=== PATIENT | female | born 1975 | race Hispanic/Latino ===

== ENCOUNTER 2017-09-15 21:29 | Outpatient (CLI) | payer OTHER ==
[2017-09-15 21:52] VITALS: BP 137/86
[2017-09-15 22:44] LABS: Bacteria,Urine 2+ /HPF (Negative); Bilirubin,Urine NEG (Negative); Blood,Urine NEG (Negative); Calcium Oxalate Crystals,Urine FEW; Color,Urine Yellow (Yellow); Mucus,Urine 1+ /HPF; Protein,Urine <15 mg/dL mg/dL (Negative); Urobilinogen,Urine < 2.0 mg/dL (<2.0)
[2017-09-15 22:48] LABS: Amphetamine Screen,Urine PRESUMPTIVE NEGATIVE; Benzodiazepines Screen,Urine PRESUMPTIVE NEGATIVE; Cannabinoid Screen,Urine PRESUMPTIVE NEGATIVE; Cocaine Screen,Urine PRESUMPTIVE NEGATIVE; Methadone Screen,Urine PRESUMPTIVE NEGATIVE; Opiate Screen,Urine PRESUMPTIVE NEGATIVE
== END 2017-09-15 23:06 | disposition home or self-care (01) ==
LOC: TRG 21:29
PROVIDERS: ATTEND Obstetrics & Gynecology
DX: O36.8130 Decreased fetal movements, third trimester, not applicable or unspecified (principal); O62.9 Abnormality of forces of labor, unspecified; O09.523 Supervision of elderly multigravida, third trimester; Z3A.36 36 weeks gestation of pregnancy; Z79.899 Other long term (current) drug therapy
CPT/HCPCS: 59025; 80307; 81001; 87116

== ENCOUNTER 2017-09-24 17:15 | Outpatient (CLI) | payer OTHER ==
[2017-09-24 18:40] LABS: Bacteria,Urine 2+ /HPF (Negative); Bilirubin,Urine NEG (Negative); Blood,Urine NEG (Negative); Color,Urine Yellow (Yellow); Mucus,Urine 2+ /HPF; Urobilinogen,Urine < 2.0 mg/dL (<2.0)
[2017-09-24 18:45] LABS: Amphetamine Screen,Urine PRESUMPTIVE NEGATIVE; Benzodiazepines Screen,Urine PRESUMPTIVE NEGATIVE; Cannabinoid Screen,Urine PRESUMPTIVE NEGATIVE; Cocaine Screen,Urine PRESUMPTIVE NEGATIVE; Methadone Screen,Urine PRESUMPTIVE NEGATIVE; Opiate Screen,Urine PRESUMPTIVE NEGATIVE
[2017-09-24 20:28] LABS: Basophils % (Auto) 0.5 % (0.0-1.8); Eosinophils # (Auto) 0.2 K/mm3 (0.0-0.4); Eosinophils % (Auto) 2.3 % (0.0-4.3); Hematocrit 29.3 % (30.3-42.9); Hemoglobin 9.3 gm/dl (10.1-14.3); Lymphocytes # (Auto) 1.7 K/mm3 (1.2-5.4); Lymphocytes % (Auto) 23.6 % (13.4-35.0); Mean Corpuscular HGB Conc 32 % (30-34); Mean Corpuscular Volume 74 fl (79-97); Monocytes # (Auto) 0.8 K/mm3 (0.0-0.8); Platelet Count 220 K/mm3 (140-440); Red Blood Count 3.96 M/mm3 (3.65-5.03); Red Cell Distribution Width 16.6 % (13.2-15.2)
[2017-09-24 20:29] LABS: Mean Corpuscular Hemoglobin 24 pg (28-32)
[2017-09-24 20:57] LABS: Hepatitis C Virus Antibody Non-Reactive (NonReactive); Rubella IgG Antibody Immune (Immune)
--- NOTE | 2017-09-25 00:48 | Ultrasound Report ---
FINAL REPORT EXAM: US OB BPP WO NON-STRESS HISTORY: No care, biophysical profile. TECHNIQUE: Transabdominal sonographic evaluation was performed of the female pelvis for biophysical profile. PRIORS: None. FINDINGS: Measurements: breathing movements: Greater than or equal to 1 episode of greater than or equal to 30 seconds of breathing and 30 minutes or less (score 2) movements: Greater than or equal to 3 discrete body/limb movements in 30 minutes or less (score 2). posturing tone: Greater than or equal to 1 episode of active extension with return deflection of limbs or trunk; opening and closing of hand consider normal tone (score 2) Qualitative amniotic fluid volume: Greater than or equal to 1 pocket of fluid measuring 2 centimeters in vertical axis. (Score 2) Total biophysical profile score 8 out of 8. heart rate 157 beats per minute. Last menstrual. 12/30/2016. Estimated age 38 week 2 day. IMPRESSION: Normal biophysical profile (score 8/8). heart rate measures 157 beats/minute.
--- NOTE | 2017-09-25 00:59 | Ultrasound Report ---
FINAL REPORT EXAM: US OB > = 14 WEEKS FETUS HISTORY: NO CARE; WELL BEING TECHNIQUE: Transabdominal sonographic evaluation was performed of the fetus with and without color Doppler imaging. PRIORS: None. FINDINGS: Single intrauterine is noted in transverse left position. The placenta is anterior/right. The placenta is low lying and there is marginal placenta previa. A grade 2 placenta is noted. The cervical length is estimated at 4 centimeters and is closed. Amniotic fluid index 13.2 cm. Measurements: Biparietal diameter 8.0 cm equals 32 weeks 0 days. Head circumference 30.1 cm equals 33 weeks 3 days Abdominal circumference 28.4 cm equals 32 week 3 day Femoral length 6.2 cm equals 31 week 6 day. Head circumference/abdominal circumference ratio: 1.06 Cephalic index: 76.2 Estimated weight 1950 grams Estimated age by ultrasound criteria 32 week 3 days. The evaluated the cisterna magna, cerebellum, stomach, kidneys, bladder, diaphragm, heart, three-vessel cord, abdominal cord insertion and the longitudinal transverse views of the spine are unremarkable however follow-up imaging should be obtained The choroid plexus/lateral ventricles and four-chamber heart views were incomplete secondary to lie. IMPRESSION: 1. Marginal placenta. 2. Incomplete evaluation of the choroid plexus/lateral ventricles and four-chamber view of the heart secondary to lie. Follow-up imaging requested. 3. Single viable intrauterine in a transverse left position. There is no abnormality identified. Estimated age by ultrasound criteria is 32 weeks 3 days.
== END 2017-09-24 22:05 | disposition home or self-care (01) ==
LOC: TRG 17:15 → LD 17:17 → TRG 22:05
PROVIDERS: ATTEND Obstetrics & Gynecology
DX: O32.2XX0 Maternal care for transverse and oblique lie, not applicable or unspecified (principal); O47.1 False labor at or after 37 completed weeks of gestation; Z3A.38 38 weeks gestation of pregnancy
CPT/HCPCS: 36415; 59025; 76805; 76819; 80307; 81001; 85025; 85660; 86592; 86706; 86762; 86803; 86900; 86901; 87806

== ENCOUNTER 2017-11-05 19:48 | Outpatient (CLI) | payer SELFPAY ==
[2017-11-05 20:38] VITALS: BP 163/91
--- NOTE | 2017-11-09 14:22 | Ultrasound Report ---
FINAL REPORT EXAM: US OB FOLLOW UP HISTORY: no care TECHNIQUE: Transabdominal sonography of the pelvis. PRIORS: 24 September 2017. FINDINGS: There is a single, live intrauterine in transverse presentation, with head to maternal left. heart motion is detected and heart rate is 139 beats per minute. Placenta is located anterior, with marginal previa again evident. Umbilical cord also appears interposed between fetus and internal cervical os. Cervical length 3.4 cm. Biometric data obtained and corresponds to an estimated gestational age of 37 weeks 5 days and an ultrasound estimated date of delivery of 16 November 2017 (based on data from comparison examination). survey not performed. Amniotic fluid index is 13.7 cm. EFW: 3205g +/- 474g. BPD: 8.98 cm HC: 34.01 cm AC: 33.21 cm FL: 7.39 cm Remainder of the uterus and adnexa grossly unremarkable. IMPRESSION: 1. Single, live intrauterine . 2. Marginal placenta previa and umbilical cord overlying internal cervical os.
== END 2017-11-05 22:30 | disposition home or self-care (01) ==
LOC: TRG 19:48
PROVIDERS: ATTEND Obstetrics & Gynecology
DX: O47.1 False labor at or after 37 completed weeks of gestation (principal); Z3A.38 38 weeks gestation of pregnancy
CPT/HCPCS: 59025; 76816

== ENCOUNTER 2017-11-17 18:28 | Outpatient (CLI) | payer SELFPAY ==
[2017-11-17 20:51] LABS: Basophils % (Auto) 0.4 % (0.0-1.8); Eosinophils # (Auto) 0.2 K/mm3 (0.0-0.4); Eosinophils % (Auto) 2.1 % (0.0-4.3); Hematocrit 26.9 % (30.3-42.9); Hemoglobin 8.3 gm/dl (10.1-14.3); Lymphocytes # (Auto) 1.9 K/mm3 (1.2-5.4); Lymphocytes % (Auto) 25.3 % (13.4-35.0); Mean Corpuscular HGB Conc 31 % (30-34); Monocytes # (Auto) 0.9 K/mm3 (0.0-0.8); Monocytes % (Auto) 11.9 % (0.0-7.3); Platelet Count 196 K/mm3 (140-440); Red Blood Count 3.87 M/mm3 (3.65-5.03); Red Cell Distribution Width 18.2 % (13.2-15.2)
[2017-11-17 20:53] LABS: Mean Corpuscular Hemoglobin 22 pg (28-32); Mean Corpuscular Volume 70 fl (79-97)
[2017-11-17 20:55] VITALS: BP 144/86
[2017-11-17 21:07] LABS: Amphetamine Screen,Urine PRESUMPTIVE NEGATIVE; Benzodiazepines Screen,Urine PRESUMPTIVE NEGATIVE; Cannabinoid Screen,Urine PRESUMPTIVE NEGATIVE; Cocaine Screen,Urine PRESUMPTIVE NEGATIVE; Methadone Screen,Urine PRESUMPTIVE NEGATIVE; Opiate Screen,Urine PRESUMPTIVE NEGATIVE
--- NOTE | 2017-11-17 21:22 | Ultrasound Report ---
FINAL REPORT PROCEDURE: US OB BPP WO NON-STRESS TECHNIQUE: Sonographic evaluation for breathing, movement, tone, and amniotic fluid volume was performed. CPT 49421 HISTORY: no care COMPARISON: No prior studies are available for comparison. FINDINGS: Limited exam to evaluate biophysical profile score provided. Further evaluation was not requested nor performed. Amniotic fluid volume: Normal-score 2. At least one vertical pocket > 2 cm or more in vertical axis. breathing: Normal-score 2. movement: Normal-score 2. tone: Normal. Score: 8 of 8. heart rate of 174 beats per minute is detected. IMPRESSION: Biophysical profile score 8/8. Mildly elevated heart rate.
== END 2017-11-17 21:02 | disposition home or self-care (01) ==
LOC: TRG 18:28
PROVIDERS: ATTEND Obstetrics & Gynecology
DX: O47.1 False labor at or after 37 completed weeks of gestation (principal); Z3A.40 40 weeks gestation of pregnancy
CPT/HCPCS: 36415; 59025; 76819; 80307; 85025; 86592; 86706; 86762; 87806